=== PATIENT | female | born 1970 | race Hispanic/Latino ===

== ENCOUNTER 2017-02-14 08:48 | Emergency (ER) | payer MEDICARE, MEDICAID ==
[2017-02-14 08:49] VITALS: BMI 41.6
[2017-02-14 09:03] VITALS: PULSE 81; RESP 19; TEMP 98.3; O2SAT 97
[2017-02-14 09:14] VITALS: BP 151/90
--- NOTE | 2017-02-14 09:37 | ED PDOC ---
Arrival/HPI - General Chief Complaint: Upper Extremity Problem/Injury Time Seen by Provider: 02/14/17 09:01 Historian: Patient - History of Present Illness Narrative History of Present Illness (Text): 02/14/17 09:35 47yo morbidly obese female with history of hypertension, diabetes, chronic back pain present with complaint of left upper arm pain that radiates to her hand with numbness. States she hit her upper arm against a steel post last night. States she took her usual pain medication last night. Came to ED today for the persistent pain. She denies chest pain, focal weakness, any other complaint. 02/14/17 10:05 Past Medical History - Provider Review Nursing Documentation Reviewed: Yes - Past History Past History: No Previous - Infectious Disease Hx of Infectious Diseases: None - Tetanus Immunization Tetanus Immunization: Up to Date - Cardiac Hx Cardiac Disorders: Yes Hx Hypertension: Yes - Pulmonary Hx Respiratory Disorders: Yes Other/Comment: seasonal allergies - Neurological Hx Neurological Disorder: No - HEENT Hx HEENT Disorder: No - Renal Hx Renal Disorder: No - Endocrine/Metabolic Hx Endocrine Disorders: Yes Hx Diabetes Mellitus Type 2: Yes - Hematological/Oncological Hx Blood Disorders: No - Integumentary Hx Dermatological Disorder: No - Musculoskeletal/Rheumatological Hx Arthritis: Yes Hx Back Pain: Yes Hx Herniated Disk: Yes - Gastrointestinal Hx Gastrointestinal Disorders: No - Genitourinary/Gynecological Hx Genitourinary Disorders: No - Psychiatric Hx Depression: No Hx Emotional Abuse: No Hx Physical Abuse: No Hx Substance Use: No - Surgical History Hx Cholecystectomy: Yes Hx Orthopedic Surgery: Yes (L WRIST, FINGER) Hx Tonsillectomy: Yes Other/Comment: hearniated disc repair April 04, 2016 - Anesthesia Hx Anesthesia: Yes Hx Anesthesia Reactions: No - Suicidal Assessment Feels Threatened In Home Enviroment: No Family/Social History - Physician Review Nursing Documentation Reviewed: Yes Family/Social History: Unknown Family HX Smoking Status: Light Smoker < 10 Cigarettes Daily Hx Alcohol Use: No Hx Substance Use: No Hx Substance Use Treatment: No Allergies/Home Meds Allergies/Adverse Reactions: Allergies No Known Allergies Allergy (Verified 02/14/17 09:03) Home Medications: Home Meds Medication Instructions Recorded Confirmed Fexofenadine/Pseudoephedrine 1 each PO DAILY 04/28/16 02/14/17 [Enedina-D 12 Hour Tablet] Gabapentin [Neurontin] 300 mg PO DAILY 04/28/16 02/14/17 Lisinopril [Zestril] 30 mg PO DAILY 04/28/16 02/14/17 Metoprolol Succinate [Toprol XL] 50 mg PO TID 04/28/16 02/14/17 Oxycodone HCl/Acetaminophen 1 tab PO Q8H 04/28/16 02/14/17 [Percocet 7.5-325 mg Tablet] amLODIPine [Norvasc] 10 mg PO DAILY 04/28/16 02/14/17 metFORMIN [glucOPHAGE] 500 mg PO TID 04/28/16 02/14/17 tiZANidine [Zanaflex] 4 mg PO HS 02/14/17 02/14/17 Review of Systems - Physician Review All systems were reviewed & negative as marked: Yes - Review of Systems Constitutional: Normal Eyes: Normal ENT: Normal Respiratory: Normal Cardiovascular: Normal Gastrointestinal: Normal Genitourinary Female: Normal Musculoskeletal: Arthralgias (Left arm pain) Skin: Normal Neurological: Normal Endocrine: Normal Hemo/Lymphatic: Normal Psychiatric: Normal Physical Exam Vital Signs Reviewed: Yes Vital Signs Temp Pulse Resp BP Pulse Ox 02/14/17 09:14 151/90 H 02/14/17 09:01 98.3 F 81 19 176/100 H 97 Temperature: Afebrile Blood Pressure: Normal Pulse: Regular Respiratory Rate: Normal Appearance: Positive for: Well-Appearing, Non-Toxic, Comfortable Pain Distress: None Mental Status: Positive for: Alert and Oriented X 3 - Systems Exam Head: Present: Atraumatic, Normocephalic Pupils: Present: PERRL Extroacular Muscles: Present: EOMI Conjunctiva: Present: Normal Mouth: Present: Moist Mucous Membranes Neck: Present: Normal Range of Motion Respiratory/Chest: Present: Clear to Auscultation, Good Air Exchange. No: Respiratory Distress, Accessory Muscle Use Cardiovascular: Present: Regular Rate and Rhythm, Normal S1, S2. No: Murmurs Abdomen: Present: Normal Bowel Sounds. No: Tenderness, Distention, Peritoneal Signs Back: Present: Normal Inspection Upper Extremity: Present: NORMAL PULSES, Tenderness (Left upper arm), Neurovascularly Intact, Capillary Refill < 2s. No: Cyanosis, Edema, Normal ROM (Limited on abduction up to 90degree secondary to pain), Swelling, Erythema, Temperature Abnormalties, Deformity Lower Extremity: Present: Normal Inspection. No: Edema Neurological: Present: GCS=15, CN II-XII Intact, Speech Normal Skin: Present: Warm, Dry, Normal Color. No: Rashes Psychiatric: Present: Alert, Oriented x 3, Normal Insight, Normal Concentration Medical Decision Making ED Course and Treatment: 02/14/17 10:03 Left humerus xray - No acute fracture noted Result was DW the pt. She already have pain medication at home. Advised to take medication as directed. Arm placed on a sling. Advised to try to move arm, to avoid making it stiff. Referred to her PMD/Ortho. [facility] Ed for any new or worsening symptoms. - RAD Interpretation Radiology Orders: 02/14/17 09:22 HUMERUS LEFT [RAD] Stat - Medication Orders Current Medication Orders: Discontinued Medications Ketorolac Tromethamine (Toradol) 60 mg IM STAT STA Stop: 02/14/17 09:22 Last Admin: 02/14/17 09:27 Dose: 60 mg Disposition/Present on Arrival - Present on Arrival Any Indicators Present on Arrival: No History of DVT/PE: No History of Uncontrolled Diabetes: No Urinary Catheter: No History of Decub. Ulcer: No History Surgical Site Infection Following: None - Disposition Have Diagnosis and Disposition been Completed?: Yes Diagnosis: Arm contusion Disposition: HOME/ ROUTINE Disposition Time: 10:10 Patient Plan: Discharge Condition: STABLE Discharge Instructions (ExitCare): Arm Pain (ED) Additional Instructions: Follow up with your doctor/orthopedist Return to ED for any new or worsening symptoms Referrals: Danyell Hale DO [Primary Care Provider] - Follow up with primary Lottie Enamorado MD [Staff Provider] - Follow up with primary
--- NOTE | 2017-02-14 10:02 | RAD ---
PROCEDURE: Radiographs of the left humerus. HISTORY: aem pain s/p trauma COMPARISON: None. FINDINGS: BONES: Normal. No fracture or focal lesion. SOFT TISSUES: Normal. OTHER FINDINGS: None. IMPRESSION: Normal radiographs of left humerus.
[2017-02-14] MEDS ORDERED: Albuterol-Ipratrop 3 mg / 0.5 (3 ml) UD ONE (20:35)
== END 2017-02-14 10:16 | disposition home or self-care (01) ==
LOC: ED 08:48
DX: S40.022A Contusion of left upper arm, initial encounter (principal); W22.8XXA Striking against or struck by other objects, initial encounter; Y92.89 Other specified places as the place of occurrence of the external cause
CPT/HCPCS: 73060; 96372; 99283; J1885

== ENCOUNTER 2017-05-03 21:20 | Emergency (ER) | payer MEDICAID, MEDICARE ==
[2017-05-03 21:20] VITALS: BMI 41.6
[2017-05-03 21:39] VITALS: TEMP 99
[2017-05-03 22:28] VITALS: BP 164/87; PULSE 84; RESP 14; O2SAT 96
[2017-05-03] MEDS ORDERED: Morphine 4 mg/ml ISec IM STA (22:28)
--- NOTE | 2017-05-03 23:14 | ED PDOC ---
Arrival/HPI - General Chief Complaint: Back Pain Time Seen by Provider: 05/03/17 22:19 Historian: Patient - History of Present Illness Narrative History of Present Illness (Text): 05/03/17 23:45 47-year-old female with a history of chronic back pain and chronic right hip pain presents today with worsening right hip pain/sciatica. Patient states she sees pain management doctor for her chronic pain. Patient states she has had 2 back surgeries in the past. Patient states she takes Percocets gabapentin muscle relaxers without improvement in her symptoms. Patient states she has an appointment with her pain management doctor tomorrow but states that over the past 3 days the pain has worsened. Patient denies numbness weakness or tingling in the extremity. Denies any urinary symptoms. No abdominal pain. No chest pain or shortness of breath. Denies fevers or chills. No other complaints Time/Duration: Other (chronic back pain, chronic hip pain worsening over the past 3 days) Symptom Onset: Gradual Symptom Course: Worsening Quality: Aching, Stabbing, Throbbing, Unable to Describe Severity Level: 9 Past Medical History - Provider Review Nursing Documentation Reviewed: Yes - Travel History Have you recently traveled outside [place] w/in the past 3 mons?: No - Past History Past History: No Previous - Infectious Disease Hx of Infectious Diseases: None - Tetanus Immunization Tetanus Immunization: Up to Date - Cardiac Hx Cardiac Disorders: Yes Hx Hypertension: Yes - Pulmonary Hx Respiratory Disorders: Yes Other/Comment: seasonal allergies - Neurological Hx Neurological Disorder: No - HEENT Hx HEENT Disorder: No - Renal Hx Renal Disorder: No - Endocrine/Metabolic Hx Endocrine Disorders: Yes Hx Diabetes Mellitus Type 2: Yes - Hematological/Oncological Hx Blood Disorders: No - Integumentary Hx Dermatological Disorder: No - Musculoskeletal/Rheumatological Hx Arthritis: Yes Hx Back Pain: Yes Hx Herniated Disk: Yes - Gastrointestinal Hx Gastrointestinal Disorders: No - Genitourinary/Gynecological Hx Genitourinary Disorders: No - Psychiatric Hx Depression: No Hx Emotional Abuse: No Hx Physical Abuse: No Hx Substance Use: No - Surgical History Hx Cholecystectomy: Yes Hx Orthopedic Surgery: Yes (L WRIST, FINGER) Hx Tonsillectomy: Yes Other/Comment: hearniated disc repair April 04, 2016 - Anesthesia Hx Anesthesia: Yes Hx Anesthesia Reactions: No - Suicidal Assessment Feels Threatened In Home Enviroment: No Family/Social History - Physician Review Nursing Documentation Reviewed: Yes Family/Social History: Unknown Family HX Smoking Status: Light Smoker < 10 Cigarettes Daily Hx Alcohol Use: No Hx Substance Use: No Hx Substance Use Treatment: No Allergies/Home Meds Allergies/Adverse Reactions: Allergies No Known Allergies Allergy (Verified 02/14/17 09:03) Home Medications: Home Meds Medication Instructions Recorded Confirmed Fexofenadine/Pseudoephedrine 1 each PO DAILY 04/28/16 02/14/17 [Enedina-D 12 Hour Tablet] Gabapentin [Neurontin] 300 mg PO DAILY 04/28/16 02/14/17 Lisinopril [Zestril] 30 mg PO DAILY 04/28/16 02/14/17 Metoprolol Succinate [Toprol XL] 50 mg PO TID 04/28/16 02/14/17 Oxycodone HCl/Acetaminophen 1 tab PO Q8H 04/28/16 02/14/17 [Percocet 7.5-325 mg Tablet] amLODIPine [Norvasc] 10 mg PO DAILY 04/28/16 02/14/17 metFORMIN [glucOPHAGE] 500 mg PO TID 04/28/16 02/14/17 tiZANidine [Zanaflex] 4 mg PO HS 02/14/17 02/14/17 Review of Systems - Review of Systems Constitutional: absent: Fatigue, Fevers Respiratory: absent: SOB, Cough Cardiovascular: absent: Chest Pain, Palpitations, Syncope Gastrointestinal: absent: Abdominal Pain, Constipation, Diarrhea, Nausea, Vomiting Genitourinary Female: absent: Dysuria, Frequency, Hematuria Musculoskeletal: Arthralgias, Back Pain. absent: Neck Pain Skin: absent: Rash, Pruritis Neurological: absent: Headache, Dizziness Psychiatric: absent: Anxiety, Depression Physical Exam Vital Signs Reviewed: Yes Vital Signs Temp Pulse Resp BP Pulse Ox 05/03/17 22:20 84 14 164/87 H 96 05/03/17 21:36 99.0 F 78 18 160/92 H 99 Temperature: Afebrile Blood Pressure: Hypertensive Pulse: Regular Respiratory Rate: Normal Appearance: Positive for: Well-Appearing, Non-Toxic, Comfortable Pain Distress: None Mental Status: Positive for: Alert and Oriented X 3 - Systems Exam Head: Present: Atraumatic Mouth: Present: Moist Mucous Membranes Neck: Present: Normal Range of Motion Respiratory/Chest: Present: Clear to Auscultation, Good Air Exchange. No: Respiratory Distress, Accessory Muscle Use Cardiovascular: Present: Regular Rate and Rhythm. No: Tachycardic Abdomen: No: Tenderness Back: Present: Paraspinal Tenderness, Other (+ right sided sciatic foramen tenderness). No: CVA Tenderness, Midline Tenderness Upper Extremity: Present: Normal Inspection Lower Extremity: Present: Normal Inspection, NORMAL PULSES, Normal ROM, Neurovascularly Intact, Capillary Refill < 2 s. No: Tenderness, Swelling, Erythema Neurological: Present: GCS=15, Speech Normal, Motor Func Grossly Intact, Normal Sensory Function, Other (walks with cane) Skin: Present: Warm, Dry, Normal Color. No: Rashes Psychiatric: Present: Alert, Oriented x 3 Medical Decision Making ED Course and Treatment: 05/03/17 23:14 47-year-old morbidly obese female with chronic back pain and hip pain who has not started physical therapy presents with chronic worsening pain requesting pain medication Morphine and Toradol given IM Patient reassessment: Patient states she wants to know how long it would take until the pain medication kicks in because she wants to go home and be in her bed before the medicines starts to take its effect. Advised patient to follow up with a pain management doctor. Patient states she has follow-up appointment tomorrow. Advised return if symptoms worsen persist or if new concerning symptoms develop Patient verbalizes understanding of discharge instructions and need for immediate followup. all aspects of this case were discussed the attending of record. Impression: Back pain, hip pain follow up with pain management doctor tomorrow follow up with the primary care physician within the next 2 days return if symptoms worsen,persist or if new symptoms develop. - Medication Orders Current Medication Orders: Discontinued Medications Ketorolac Tromethamine (Toradol) 60 mg IM STAT STA Stop: 05/03/17 22:30 Last Admin: 05/03/17 22:52 Dose: 60 mg Morphine Sulfate (Morphine) 4 mg IM STAT STA Stop: 05/03/17 22:29 Last Admin: 05/03/17 22:46 Dose: 4 mg Disposition/Present on Arrival - Present on Arrival Any Indicators Present on Arrival: No History of DVT/PE: No History of Uncontrolled Diabetes: No Urinary Catheter: No History of Decub. Ulcer: No History Surgical Site Infection Following: None - Disposition Have Diagnosis and Disposition been Completed?: Yes Diagnosis: Back pain, Hip pain Disposition: HOME/ ROUTINE Disposition Time: 23:11 Patient Plan: Discharge Condition: GOOD Additional Instructions: follow up with pain management doctor tomorrow follow up with the primary care physician within the next 2 days return if symptoms worsen,persist or if new symptoms develop. Referrals: Danyell Hale DO [Primary Care Provider] - Follow up with primary Forms: [employer] ([place])
== END 2017-05-03 23:19 | disposition home or self-care (01) ==
LOC: ED 21:20
DX: M54.9 Dorsalgia, unspecified (principal); M25.551 Pain in right hip
CPT/HCPCS: 96372; 99282; J1885; J2270

== ENCOUNTER 2018-03-03 11:07 | Emergency (ER) | payer MEDICARE, MEDICAID ==
[2018-03-03 11:15] VITALS: BMI 41.4
[2018-03-03 11:22] VITALS: TEMP 98.6
--- NOTE | 2018-03-03 11:46 | ED PDOC ---
Arrival/HPI - General Chief Complaint: Lower Extremity Problem/Injury Time Seen by Provider: 03/03/18 11:13 Historian: Patient - History of Present Illness Narrative History of Present Illness (Text): 03/03/18 11:45 A 46 year old female, whose past medical history includes hypertension, diabetes , cholecystectomy, thalassemia trait, spinal surgery, and chronic lower back pain, presents to the emergency room complaining of right great toe pain x 2 months. Patient toe developed a bruise-like discoloration x [address] Portia Borden, Credit Review Analyst yesterday. Dr. Borden gave patient prescription to have a Venous Doppler b/l lower extremities, and Arterial Doppler b/l lower extremity. Patient has an appointment to get these 2 test as out-patient, but pain worsen today, so patient decided to come to ED. Patient denies trauma, or other somatic complains. Dr. Danyell Hale, PMD Dr. Portia Borden, Credit Review Analyst Time/Duration: Other (see hpi) Context: Home Past Medical History - Provider Review Nursing Documentation Reviewed: Yes - Past History Past History: No Previous - Infectious Disease Hx of Infectious Diseases: None - Tetanus Immunization Tetanus Immunization: Up to Date - Cardiac Hx Cardiac Disorders: Yes Hx Hypertension: Yes - Pulmonary Hx Respiratory Disorders: Yes Other/Comment: seasonal allergies - Neurological Hx Neurological Disorder: No - HEENT Hx HEENT Disorder: No - Renal Hx Renal Disorder: No - Endocrine/Metabolic Hx Endocrine Disorders: Yes Hx Diabetes Mellitus Type 2: Yes - Hematological/Oncological Hx Blood Disorders: No - Integumentary Hx Dermatological Disorder: No - Musculoskeletal/Rheumatological Hx Arthritis: Yes Hx Back Pain: Yes Hx Herniated Disk: Yes - Gastrointestinal Hx Gastrointestinal Disorders: No - Genitourinary/Gynecological Hx Genitourinary Disorders: No - Psychiatric Hx Depression: No Hx Emotional Abuse: No Hx Physical Abuse: No Hx Substance Use: No - Surgical History Hx Cholecystectomy: Yes Hx Orthopedic Surgery: Yes (L WRIST, FINGER) Hx Tonsillectomy: Yes Other/Comment: hearniated disc repair April 04, 2016 - Anesthesia Hx Anesthesia: Yes Hx Anesthesia Reactions: No Hx Malignant Hyperthermia: No - Suicidal Assessment Feels Threatened In Home Enviroment: No Family/Social History - Physician Review Nursing Documentation Reviewed: Yes Family/Social History: Other (noncontributory) Smoking Status: Light Smoker < 10 Cigarettes Daily Hx Alcohol Use: No Hx Substance Use: No Hx Substance Use Treatment: No Allergies/Home Meds Allergies/Adverse Reactions: Allergies No Known Allergies Allergy (Verified 02/14/17 09:03) Home Medications: Home Meds Medication Instructions Recorded Confirmed Gabapentin [Neurontin] 300 mg PO DAILY 04/28/16 03/03/18 Lisinopril [Zestril] 30 mg PO DAILY 04/28/16 03/03/18 Metoprolol Succinate [Toprol XL] 50 mg PO TID 04/28/16 03/03/18 Oxycodone HCl/Acetaminophen 1 tab PO Q8H 04/28/16 03/03/18 [Percocet 7.5-325 mg Tablet] amLODIPine [Norvasc] 10 mg PO DAILY 04/28/16 03/03/18 metFORMIN [glucOPHAGE] 750 mg PO DAILY 04/28/16 03/03/18 tiZANidine [Zanaflex] 4 mg PO HS 02/14/17 03/03/18 Insulin Detemir [Levemir] 25 units SC 03/03/18 03/03/18 Review of Systems - Review of Systems Constitutional: Normal. absent: Fatigue, Weight Change, Fevers Eyes: Normal ENT: Normal Respiratory: Normal Cardiovascular: Normal Gastrointestinal: Normal Genitourinary Female: Normal Musculoskeletal: Other (see HPI) Skin: Normal Neurological: Normal Endocrine: Normal Hemo/Lymphatic: Normal Psychiatric: Normal Physical Exam Vital Signs Temp Pulse Resp BP Pulse Ox 03/03/18 17:07 72 18 155/86 H 97 03/03/18 11:07 98.6 F 94 H 16 139/83 96 Temperature: Afebrile Blood Pressure: Normal Pulse: Regular Respiratory Rate: Normal Appearance: Positive for: Well-Appearing, Non-Toxic, Comfortable Pain Distress: None Mental Status: Positive for: Alert and Oriented X 3 - Systems Exam Head: Present: Atraumatic, Normocephalic Pupils: Present: PERRL Extroacular Muscles: Present: EOMI Conjunctiva: Present: Normal Mouth: Present: Moist Mucous Membranes Neck: Present: Normal Range of Motion Upper Extremity: Present: Normal Inspection, Normal ROM, NORMAL PULSES, Neurovascularly Intact, Capillary Refill < 2s. No: Cyanosis, Edema Lower Extremity: Present: NORMAL PULSES, Normal ROM, Neurovascularly Intact, Capillary Refill < 2 s, Other ((+) right ). No: Edema, CALF TENDERNESS, Quinten' s Sign, Tenderness, Swelling, Erythema, Temperature Abnormalties Medical Decision Making ED Course and Treatment: 03/03/18 15:[address] Pagan ED physician to evaluate patient. Toe x-rays was negative for FX or FB. Venous Doppler was negative as per ultrasound. Dr. Pagan recommended arterial Doppler of b/l extremity, because he said Credit Review Analyst had recommended, and he can not feel a DP. 03/03/18 18:20 On revaluation, patient feels better. Pain has improved. I reviewed labs, imaging report with patient. I told patient liver enzymes mild elevated, Glucose is also mild elevated. Patient was treated with IVF. The arterial Doppler demonstrates left PAD. No DVT as per Venous Doppler. Patient was recommended to f/u Dr. Hale, and Vascular doctor. Patient understood plan. Patient was instructed to be compliant with diabetes medication, and to continue with Gabapentin cap for pain as needed. Re-evaluation Time: 18:13 Reassessment Condition: Re-examined, Improved - Lab Interpretations Lab Results: 03/03/18 12:05 03/03/18 12:05 Lab Results 03/03/18 12:05: Sodium 139, Potassium 4.0, Chloride 105, Carbon Dioxide 23, Anion Gap 16, BUN 14, Creatinine 0.6 L, Est GFR ( Amer) > 60, Est GFR ( Non-Af Amer) > 60, Random Glucose 297 H, Calcium 8.9, Total Bilirubin 0.6, AST 57 H, ALT 92 H, Alkaline Phosphatase 74, Total Protein 6.7, Albumin 3.8, Globulin 2.9, Albumin/Globulin Ratio 1.3 03/03/18 12:05: PT 11.1, INR 0.97, APTT 29.5 03/03/18 12:05: WBC 8.7 D, RBC 6.21 H, Hgb 14.4, Hct 43.0, MCV 69.2 L, MCH 23.2 L, MCHC 33.5, RDW 17.0 H, Plt Count 250, MPV 10.8, Gran % 60.6, Lymph % ( Auto) 31.1, [place] % (Auto) 4.9, Eos % (Auto) 3.1, Baso % (Auto) 0.3, Gran # 5.26 , Lymph # (Auto) 2.7, [place] # (Auto) 0.4, Eos # (Auto) 0.3, Baso # (Auto) 0.03 03/03/18 11:43: POC Glucose (mg/dL) 285 H I have reviewed the lab results: Yes Interpretation: Abnormal lab values (hyperglycemia, mild elevated liver enzymes) - RAD Interpretation Narrative RAD Interpretations (Text): 03/03/18 14:03 PROCEDURE: Right Foot Radiographs. HISTORY: 1st toe ecchymosis and pain COMPARISON: None. FINDINGS: BONES: No evidence of acute displaced fracture nor dislocation. The osseous structures appear intact. No obvious cortical destructive changes JOINTS: . There is a mild to moderate hallux valgus deformity with overgrowth of the head of the 1st metatarsal and mild DJD 1st MTP joint. . Small plantar and posterior calcaneal enthesophyte formation former slightly larger than latter noted. Degenerative changes of the sesamoid articulations at the level of the head of the distal 1st metatarsal. SOFT TISSUES: No evidence of radiopaque foreign bodies. No obvious subcutaneous emphysema OTHER FINDINGS: None. IMPRESSION: No evidence of acute displaced fracture nor dislocation. Hallux valgus deformity with DJD as described. 03/03/18 18:12 PROCEDURE: Lower extremity YVETTE exam HISTORY: Peripheral vascular disease with pain and claudication.Smoker. DM PHYSICIAN(S): Jostin Cline MD. FINDINGS: The right resting YVETTE is relatively normal, 0.92. The left resting YVETTE is mildly abnormal, 0.69 The brachial systolic pressures are symmetric. The high thigh pressures and waveforms are relatively normal. The calf PVR waveforms augment normally. No significant gradients are noted across the thighs. There is a 34 mm gradient across the left knee. This is consistent with left distal SFA, popliteal, and/or trifurcation disease. The ankle and metatarsal waveforms are pulsatile and mildly blunted. This is consistent with bilateral tibial disease. IMPRESSION: 1. Mildly abnormal left YVETTE at rest 2. Left distal SFA, popliteal, and/or trifurcation disease. 03/03/18 18:13 HISTORY: Leg pain and swelling. Evaluate for DVT PHYSICIAN(S): Jostin Cline MD. TECHNIQUE: Duplex sonography and color-flow Doppler with graded compression were used to evaluate the deep venous systems of both lower extremities. FINDINGS: The visualized deep venous systems of both lower extremities are sonographically normal and compressible. Normal wave forms and augmentation are seen. There is no sonographic evidence for deep venous thrombosis in the visualized segments of both lower extremities. IMPRESSION: No sonographic evidence for deep venous thrombosis in the visualized segments of both lower extremities. Radiology Orders: 03/03/18 11:50 DUPLEX LOWER EXTRM VEIN BILAT [US] Stat 03/03/18 11:58 FOOT RIGHT 3 VIEWS ROUTINE [RAD] Stat 03/03/18 15:23 LOWER EXT ART NON-INV COMPL [US] Stat - Medication Orders Current Medication Orders: Discontinued Medications Sodium Chloride (Sodium Chloride 0.9%) 1,000 mls @ 999 mls/hr IV .Q1H1M STA Stop: 03/03/18 12:58 Last Admin: 03/03/18 12:07 Dose: 999 mls/hr eMAR Start Stop Document 03/03/18 12:07 EWO (Rec: 03/03/18 12:08 [employer] [id number]) Intravenous Solution Start Date 03/03/18 Start Time 12:08 End Date 03/03/18 End time 13:08 Total Infusion Time 60 Ketorolac Tromethamine (Toradol) 15 mg IVP STAT STA Stop: 03/03/18 15:28 Last Admin: 03/03/18 15:38 Dose: 15 mg MAR Pain Assessment Document 03/03/18 15:38 EWO (Rec: 03/03/18 15:38 [employer] [id number]) Pain Reassessment Is this a pain reassessment? No Sleep Is patient sleeping during reassessment? No IVP Administration Document 03/03/18 15:38 EWO (Rec: 03/03/18 15:38 [employer] [id number]) Charges for Administration # of IVP Administrations 1 Disposition/Present on Arrival - Present on Arrival Any Indicators Present on Arrival: No History of DVT/PE: No History of Uncontrolled Diabetes: No Urinary Catheter: No History of Decub. Ulcer: No History Surgical Site Infection Following: None - Disposition Have Diagnosis and Disposition been Completed?: Yes Diagnosis: Peripheral artery disease, Elevated liver enzymes, Diabetes Disposition: HOME/ ROUTINE Disposition Time: 18:17 Patient Plan: Discharge Patient Problems: Current Active Problems Problem Status Onset Peripheral artery disease Acute Condition: GOOD Discharge Instructions (ExitCare): Peripheral Vascular (Arterial) Disease (DC) Additional Instructions: Call Dr. Danyell Hale for follow up visit in 2-3 days. You need to make an appointment to see Vascular doctor, so ask Dr. Hale gives you a referral for vascular doctor. Continue with home pain medication. Return to emergency if symptoms worsen. Referrals: Danyell Hale DO [Family Provider] - Follow up with primary Raymond Juarez Jr., MD [Non-Staff] - Follow up with primary Forms: e-Tag (E[place]ian)
[2018-03-03] MEDS ORDERED: Sodium Chloride 0.9% 1,000 ML IV STA (11:58)
[2018-03-03 12:13] LABS: BASO # 0.03 K/mm3 (0.0-2.0); BASO % 0.3 % (0.0-3.0); EOS # 0.3 (0.0-0.7); EOS % 3.1 % (1.5-5.0); GRAN # 5.26 (1.4-6.5); GRAN % 60.6 % (50.0-68.0); HEMOGLOBIN 14.4 g/dL (12.0-16.0); LYMPH # 2.7 (1.2-3.4); LYMPH % 31.1 % (22.0-35.0); MEAN CELL VOLUME 69.2 fl (80.0-105.0); MEAN CORPUSCULAR HEMOGLOBIN 23.2 pg (25.0-35.0); MEAN CORPUSCULAR HGB CONC 33.5 g/dl (31.0-37.0); MEAN PLATELET VOLUME 10.8 fl (7.0-11.0); MONO # 0.4 (0.1-0.6); MONO % 4.9 % (1.0-6.0); RBC 6.21 10^6/uL (3.5-6.1); WHITE BLOOD COUNT 8.7 10^3/ul (4.5-11.0)
[2018-03-03 12:23] LABS: ALB/GLOB RATIO 1.3 (1.1-1.8); ALBUMIN 3.8 g/dL (3.0-4.8); ALT/SGPT 92 U/L (7-56); AST/SGOT 57 U/L (14-36); BLOOD UREA NITROGEN 14 mg/dL (7-21); CALCIUM 8.9 mg/dL (8.4-10.5); GFR AFRICAN-AMERICAN > 60; GFR NON-AFRICAN AMERICAN > 60; INR 0.97 (0.93-1.08); PARTIAL THROMBOPLASTIN TIME 29.5 Seconds (25.1-36.5); PROTHROMBIN TIME 11.1 SECONDS (9.4-12.5)
--- NOTE | 2018-03-03 14:01 | RAD ---
PROCEDURE: Right Foot Radiographs. HISTORY: 1st toe ecchymosis and pain COMPARISON: None. FINDINGS: BONES: No evidence of acute displaced fracture nor dislocation. The osseous structures appear intact. No obvious cortical destructive changes JOINTS: . There is a mild to moderate hallux valgus deformity with overgrowth of the head of the 1st metatarsal and mild DJD 1st MTP joint. . Small plantar and posterior calcaneal enthesophyte formation former slightly larger than latter noted. Degenerative changes of the sesamoid articulations at the level of the head of the distal 1st metatarsal. SOFT TISSUES: No evidence of radiopaque foreign bodies. No obvious subcutaneous emphysema OTHER FINDINGS: None. IMPRESSION: No evidence of acute displaced fracture nor dislocation. Hallux valgus deformity with DJD as described.
--- NOTE | 2018-03-03 17:45 | US ---
PROCEDURE: Lower extremity YVETTE exam HISTORY: Peripheral vascular disease with pain and claudication.Smoker. DM PHYSICIAN(S): Jostin Cline MD. FINDINGS: The right resting YVETTE is relatively normal, 0.92. The left resting YVETTE is mildly abnormal, 0.69 The brachial systolic pressures are symmetric. The high thigh pressures and waveforms are relatively normal. The calf PVR waveforms augment normally. No significant gradients are noted across the thighs. There is a 34 mm gradient across the left knee. This is consistent with left distal SFA, popliteal, and/or trifurcation disease. The ankle and metatarsal waveforms are pulsatile and mildly blunted. This is consistent with bilateral tibial disease. IMPRESSION: 1. Mildly abnormal left YVETTE at rest 2. Left distal SFA, popliteal, and/or trifurcation disease.
--- NOTE | 2018-03-03 17:45 | US ---
HISTORY: Leg pain and swelling. Evaluate for DVT PHYSICIAN(S): Jostin Cline MD. TECHNIQUE: Duplex sonography and color-flow Doppler with graded compression were used to evaluate the deep venous systems of both lower extremities. FINDINGS: The visualized deep venous systems of both lower extremities are sonographically normal and compressible. Normal wave forms and augmentation are seen. There is no sonographic evidence for deep venous thrombosis in the visualized segments of both lower extremities. IMPRESSION: No sonographic evidence for deep venous thrombosis in the visualized segments of both lower extremities.
[2018-03-03 18:00] VITALS: RESP 18
[2018-03-03 18:41] VITALS: BP 126/79; PULSE 78; O2SAT 98
== END 2018-03-03 18:40 | disposition home or self-care (01) ==
LOC: ED 11:07
DX: I73.9 Peripheral vascular disease, unspecified (principal); E11.9 Type 2 diabetes mellitus without complications; R74.8 Abnormal levels of other serum enzymes; I10 Essential (primary) hypertension; F17.210 Nicotine dependence, cigarettes, uncomplicated
CPT/HCPCS: 73630; 80053; 82948; 85025; 85610; 85730; 93923; 93970; 96361; 96374; 99283; J1885; J7040

== ENCOUNTER 2018-05-01 15:07 | Emergency (ER) | payer MEDICAID, MEDICARE ==
[2018-05-01 15:07] VITALS: BMI 41.4
[2018-05-01 15:50] VITALS: RESP 18; O2SAT 97
--- NOTE | 2018-05-01 16:13 | ED PDOC ---
Arrival/HPI - General Chief Complaint: Lower Extremity Problem/Injury Time Seen by Provider: 05/01/18 15:11 Historian: Patient - History of Present Illness Narrative History of Present Illness (Text): 05/01/18 16:07 46 year old female w/PMHx of HTN, NIDDM, cholecystectomy, thalassemia trait, spinal surgery, and chronic lower back pain, presents to the emergency room complaining of right great toe pain x 4-5 months associated with bluish discoloration. Pt reports, was seen here in ED before due to same complaints ( records review from 03/03/18, pt had arterior and venous doppler performed without acute findings), pt also had F/u with vascular surgery outpt ( last visit was 5-6 days ago) where arterial doppler was repeated " and they told me, my Left leg is occluded 100 % but they could not find anything on my Right leg" . Pt sts, " I need to go F/U with him to repeat doppler on my right leg because my toe hurts a lot". Pt admits, currently on Plavix, ASA 325 mg. Otherwise, pt denies any recent trauma or injury, fever, chills, dizziness, CP, SOB, dsypnea, palpitation, denies Right leg swelling, weakness, sensory or vasculard eficist. AMbulate to Ed for evaluation, not in any apparent distress. FYI: Podiatry DR. Ferrell was called [phone], " pt is not under podiatry care at present time, did not see patient, did not sent pt to ED" Past Medical History - Provider Review Nursing Documentation Reviewed: Yes - Travel History Have you recently traveled outside [place] w/in the past 3 mons?: No - Past History Past History: No Previous - Infectious Disease Hx of Infectious Diseases: None - Tetanus Immunization Tetanus Immunization: Up to Date - Cardiac Hx Cardiac Disorders: Yes Hx Hypertension: Yes - Pulmonary Hx Respiratory Disorders: Yes Other/Comment: seasonal allergies - Neurological Hx Neurological Disorder: No - HEENT Hx HEENT Disorder: No - Renal Hx Renal Disorder: No - Endocrine/Metabolic Hx Endocrine Disorders: Yes Hx Diabetes Mellitus Type 2: Yes - Hematological/Oncological Hx Blood Disorders: No - Integumentary Hx Dermatological Disorder: No - Musculoskeletal/Rheumatological Hx Arthritis: Yes Hx Back Pain: Yes Hx Herniated Disk: Yes - Gastrointestinal Hx Gastrointestinal Disorders: No - Genitourinary/Gynecological Hx Genitourinary Disorders: No - Psychiatric Hx Depression: No Hx Emotional Abuse: No Hx Physical Abuse: No Hx Substance Use: No - Surgical History Hx Cholecystectomy: Yes Hx Orthopedic Surgery: Yes (L WRIST, FINGER) Hx Tonsillectomy: Yes Other/Comment: hearniated disc repair April 04, 2016 - Anesthesia Hx Anesthesia: Yes Hx Anesthesia Reactions: No Hx Malignant Hyperthermia: No - Suicidal Assessment Feels Threatened In Home Enviroment: No Family/Social History - Physician Review Nursing Documentation Reviewed: Yes Family/Social History: No Known Family HX Smoking Status: Light Smoker < 10 Cigarettes Daily Hx Alcohol Use: No Hx Substance Use: No Hx Substance Use Treatment: No Allergies/Home Meds Allergies/Adverse Reactions: Allergies No Known Allergies Allergy (Verified 05/01/18 15:18) Home Medications: Home Meds Medication Instructions Recorded Confirmed Gabapentin [Neurontin] 300 mg PO DAILY 04/28/16 05/01/18 Lisinopril [Zestril] 30 mg PO DAILY 04/28/16 05/01/18 Metoprolol Succinate XL [Toprol XL] 50 mg PO TID 04/28/16 05/01/18 Oxycodone HCl/Acetaminophen 1 tab PO Q8H 04/28/16 05/01/18 [Percocet 7.5-325 mg Tablet] amLODIPine [Norvasc] 10 mg PO DAILY 04/28/16 05/01/18 metFORMIN [glucOPHAGE] 750 mg PO DAILY 04/28/16 05/01/18 tiZANidine [Zanaflex] 4 mg PO 02/14/17 05/01/18 Insulin Detemir [Levemir] 25 units SC 03/03/18 05/01/18 Aspirin [Aspirin EC] 325 mg PO DAILY 05/01/18 05/01/18 Clopidogrel [Plavix] 75 mg PO DAILY 05/01/18 05/01/18 Simvastatin [Zocor] 20 mg PO DAILY 05/01/18 05/01/18 Review of Systems - Review of Systems Constitutional: Normal Eyes: Normal ENT: Normal Respiratory: Normal Cardiovascular: Normal Gastrointestinal: Normal Genitourinary Female: Normal Musculoskeletal: Other (Right big toe pain, discoloration) Skin: absent: Rash Neurological: Normal Endocrine: Normal Hemo/Lymphatic: Normal Psychiatric: Normal Physical Exam Vital Signs Temp Pulse Resp BP Pulse Ox 05/01/18 15:30 98.5 F 73 18 167/113 H 97 Temperature: Afebrile Blood Pressure: Normal Pulse: Regular Respiratory Rate: Normal Appearance: Positive for: Well-Appearing, Non-Toxic, Comfortable Pain Distress: Mild Mental Status: Positive for: Alert and Oriented X 3 - Systems Exam Conjunctiva: Present: Normal Mouth: Present: Moist Mucous Membranes Neck: Present: Normal Range of Motion, Trachea Midline. No: JVD, Bruit Respiratory/Chest: Present: Clear to Auscultation, Good Air Exchange. No: Respiratory Distress, Accessory Muscle Use Cardiovascular: Present: Regular Rate and Rhythm, Normal S1, S2. No: Murmurs Abdomen: No: Tenderness, Distention, Peritoneal Signs Back: No: CVA Tenderness Upper Extremity: Present: Normal ROM, NORMAL PULSES. No: Cyanosis, Tenderness, Deformity Lower Extremity: Present: NORMAL PULSES, Normal ROM (B/L), Tenderness (Right 1st toe distal phalanx mild tenderness just below nail bed. Scant bluish discoloration tip of Right 1st distal phalanx. no erythema, no ingrown nail, no discharges or flactulance, no neurovascular deficits.), Neurovascularly Intact. No: Edema, CALF TENDERNESS (B/L), Swelling, Erythema, Deformity Neurological: Present: GCS=15, Speech Normal Skin: Present: Warm, Dry, Normal Color. No: Rashes Psychiatric: Present: Alert, Oriented x 3, Normal Insight, Normal Concentration Medical Decision Making ED Course and Treatment: 05/01/18 Pt was OBS in ED for 3 hours and remained stable. on re-evaluation, pt is afebrile, hemodynamicaly stable. Non-toxic. Ambulatory in Ed with baseline gait. Neck: Supple, (-) JVD, (-) carotid bruits B/L Lungs: CTA B/L, BS equal B/L. CVS: (+)[id number]. Abd: benign. Right foot: (+) bluish discoloration over distal aspect Right 1st toe. No deformity, no open wounds, no evidence of cellulitis. FAROM, no neurovascular deficits. Blood work review and appears baseline. Arterial Doppler US of RLE results review with , no acute findings noted over RLE. Venous Doppler US (-) DVT of RLE. Pt hs clinical findings c/w Right big toe discoloration, chornic for past 5 months, r/o PVD. Pt has scheduled vascular surgery appointment on 05/23/18, pt advised to F/U for further eval and tx. Pt understand,stable for discharge now. Pt was seen by , results review, discharge recommend with outpt f/u. - Lab Interpretations Lab Results: 05/01/18 17:45 05/01/18 17:45 Lab Results 05/01/18 17:45: PT 11.3, INR 0.99, APTT 30.5 05/01/18 17:45: Sodium 142, Potassium 4.2, Chloride 103, Carbon Dioxide 28, Anion Gap 16, BUN 11, Creatinine 0.6 L, Est GFR ( Amer) > 60, Est GFR ( Non-Af Amer) > 60, Random Glucose 185 H, Calcium 9.5, Total Bilirubin 0.6, AST 56 H, ALT 71 H, Alkaline Phosphatase 68, Total Protein 7.2, Albumin 4.1, Globulin 3.2, Albumin/Globulin Ratio 1.3 05/01/18 17:45: WBC 11.4 H D, RBC 6.23 H, Hgb 14.3, Hct 42.8, MCV 68.7 L, MCH 23.0 L, MCHC 33.4, RDW 17.6 H, Plt Count 232, MPV 10.8, Gran % 58.6, Lymph % ( Auto) 31.1, Heard % (Auto) 4.6, Eos % (Auto) 5.3 H, Baso % (Auto) 0.4, Gran # 6.70 H, Lymph # (Auto) 3.5 H, Heard # (Auto) 0.5, Eos # (Auto) 0.6, Baso # (Auto ) 0.04 Interpretation: No sign. chg./baseline - RAD Interpretation Narrative RAD Interpretations (Text): 05/01/18 18:10 Accession No. : [id number] Patient Name / ID : BENNY PAYNE / [id number] Exam Date : 05/01/2018 16:20:00 ( Approved ) Study Comment : Sex / Age : F / 48Y Creator : Jostin Coronado MD Dictator : Jostin Coronado MD Shuffle Board Operator : Insulation Worker Furnace Installer : Jostin Coronado MD Approver2 : Report Date : 05/01/2018 17:15:38 My Comment : PROCEDURE: Lower extremity YVETTE exam HISTORY: Peripheral vascular disease with pain. Recent bilateral lower extremity interventions at an outside institution. PHYSICIAN(S): Jostin Cline MD. FINDINGS: The right resting YVETTE is normal, 1.05. The left resting YVETTE is moderately abnormal, 0.73 The brachial systolic pressures are symmetric. The right high thigh PVR waveform and pressure is relatively normal. There is a 34 mm difference between high thigh pressures, lower on the left. The left high thigh PVR waveform is decreased in amplitude compared to the right. This could represent left iliac and/ or COOLER OPERATOR disease. The PVR waveforms and pressures are normal all levels on the right. There is a 35 mm gradient across the left thigh. The left calf PVR waveform is moderately blunted. The findings are consistent with left SFA occlusive disease. The left ankle and metatarsal waveforms are moderately blunted. IMPRESSION: 1. Moderately abnormal left YVETTE at rest. 2. Left SFA occlusive disease. 3. Possible left iliac and/ or common femoral artery occlusive disease Radiology Orders: 05/01/18 15:59 LOWER EXT ART NON-INV COMPL [US] Stat 05/01/18 16:00 DUPLEX LOWER EXTRM VEIN RIGHT [US] Stat Accession No. : [id number] Patient Name / ID : BENNY PAYNE / [id number] Exam Date : 05/01/2018 16:58:08 ( Approved ) Study Comment : Sex / Age : F / 48Y Creator : Jostin Coronado MD Dictator : Jostin Coronado MD Shuffle Board Operator : Insulation Worker Furnace Installer : Jostin Coronado MD Approver2 : Report Date : 05/01/2018 17:31:07 My Comment : PROCEDURE: Right lower extremity venous US HISTORY: Leg pain and swelling. Evaluate for DVT. PHYSICIAN(S): Jostin Cline M.D. TECHNIQUE: Duplex sonography and color-flow Doppler with graded compression were used to evaluate the deep venous system of the right lower extremity. FINDINGS: The visualized deep venous system of the right lower extremity is sonographically normal and compressible. Normal waveforms and augmentation are seen. There is no sonographic evidence for deep venous thrombosis in the visualized segments of the right lower extremity. IMPRESSION: 1. No sonographic evidence for deep venous thrombosis in the visualized segments of the right lower extremity. Disposition/Present on Arrival - Present on Arrival Any Indicators Present on Arrival: No History of DVT/PE: No History of Uncontrolled Diabetes: No Urinary Catheter: No History of Decub. Ulcer: No History Surgical Site Infection Following: None - Disposition Have Diagnosis and Disposition been Completed?: Yes Diagnosis: Toe pain, PVD (peripheral vascular disease) Disposition: HOME/ ROUTINE Disposition Time: 17:50 Patient Plan: Discharge Condition: STABLE Discharge Instructions (ExitCare): Peripheral Vascular (Arterial) Disease (DC) Additional Instructions: Follow up with Vascular surgery as scheduled on May 23, 2018 for further evaluation and treatment Return if any new changes. Prescriptions: Ibuprofen [Motrin Tab] 600 mg PO TID #20 tab Referrals: Danyell Hale DO [Primary Care Provider] - Follow up with primary Forms: [employer] (Turkmen)
--- NOTE | 2018-05-01 17:17 | US ---
PROCEDURE: Lower extremity YVETTE exam HISTORY: Peripheral vascular disease with pain. Recent bilateral lower extremity interventions at an outside institution. PHYSICIAN(S): Jostin Cline MD. FINDINGS: The right resting YVETTE is normal, 1.05. The left resting YVETTE is moderately abnormal, 0.73 The brachial systolic pressures are symmetric. The right high thigh PVR waveform and pressure is relatively normal. There is a 34 mm difference between high thigh pressures, lower on the left. The left high thigh PVR waveform is decreased in amplitude compared to the right. This could represent left iliac and/ or CONTINUUM OF CARE MANAGER disease. The PVR waveforms and pressures are normal all levels on the right. There is a 35 mm gradient across the left thigh. The left calf PVR waveform is moderately blunted. The findings are consistent with left SFA occlusive disease. The left ankle and metatarsal waveforms are moderately blunted. IMPRESSION: 1. Moderately abnormal left YVETTE at rest. 2. Left SFA occlusive disease. 3. Possible left iliac and/ or common femoral artery occlusive disease
--- NOTE | 2018-05-01 17:32 | US ---
PROCEDURE: Right lower extremity venous US HISTORY: Leg pain and swelling. Evaluate for DVT. PHYSICIAN(S): Jostin Cline M.D. TECHNIQUE: Duplex sonography and color-flow Doppler with graded compression were used to evaluate the deep venous system of the right lower extremity. FINDINGS: The visualized deep venous system of the right lower extremity is sonographically normal and compressible. Normal waveforms and augmentation are seen. There is no sonographic evidence for deep venous thrombosis in the visualized segments of the right lower extremity. IMPRESSION: 1. No sonographic evidence for deep venous thrombosis in the visualized segments of the right lower extremity.
[2018-05-01 17:56] LABS: BASO # 0.04 K/mm3 (0.0-2.0); BASO % 0.4 % (0.0-3.0); EOS # 0.6 (0.0-0.7); EOS % 5.3 % (1.5-5.0); GRAN # 6.7 (1.4-6.5); GRAN % 58.6 % (50.0-68.0); HEMOGLOBIN 14.3 g/dL (12.0-16.0); LYMPH # 3.5 (1.2-3.4); LYMPH % 31.1 % (22.0-35.0); MEAN CELL VOLUME 68.7 fl (80.0-105.0); MEAN CORPUSCULAR HGB CONC 33.4 g/dl (31.0-37.0); MEAN PLATELET VOLUME 10.8 fl (7.0-11.0); MONO # 0.5 (0.1-0.6); MONO % 4.6 % (1.0-6.0); RBC 6.23 10^6/uL (3.5-6.1); RED CELL DISTRIBUTION WIDTH 17.6 % (11.5-14.5); WHITE BLOOD COUNT 11.4 10^3/ul (4.5-11.0)
[2018-05-01 18:07] LABS: ALB/GLOB RATIO 1.3 (1.1-1.8); ALBUMIN 4.1 g/dL (3.0-4.8); ALT/SGPT 71 U/L (7-56); AST/SGOT 56 U/L (14-36); BLOOD UREA NITROGEN 11 mg/dL (7-21); CALCIUM 9.5 mg/dL (8.4-10.5); GFR AFRICAN-AMERICAN > 60; GFR NON-AFRICAN AMERICAN > 60; INR 0.99 (0.93-1.08); PARTIAL THROMBOPLASTIN TIME 30.5 Seconds (25.1-36.5); PROTHROMBIN TIME 11.3 SECONDS (9.4-12.5)
[2018-05-01 18:36] VITALS: BP 179/96; PULSE 72; TEMP 98.2
== END 2018-05-01 18:35 | disposition home or self-care (01) ==
LOC: ED 15:07
DX: M79.674 Pain in right toe(s) (principal); I73.9 Peripheral vascular disease, unspecified; F17.210 Nicotine dependence, cigarettes, uncomplicated; I10 Essential (primary) hypertension